=== PATIENT | female | born 1950 | race Caucasian/White ===

== ENCOUNTER 2017-08-19 18:57 | Emergency (ER) | payer OTHER | END 2017-08-19 22:37 | disposition home or self-care (01) | LOC: FTE 18:57 | DX: R51 Headache (principal); I10 Essential (primary) hypertension; Z79.82 Long term (current) use of aspirin | CPT/HCPCS: 99283 ==

== ENCOUNTER 2018-07-02 18:52 | Emergency (ER) | payer OTHER ==
[2018-07-03] MEDS: ASPIRIN 325 MG TAB PO (01:26)
== END 2018-07-03 02:05 | disposition home or self-care (01) ==
LOC: FTE 18:52
DX: M25.512 Pain in left shoulder (principal); I10 Essential (primary) hypertension; R07.9 Chest pain, unspecified; Z79.82 Long term (current) use of aspirin
CPT/HCPCS: 93005; 99283-25